=== PATIENT | female | born 1990 ===

== ENCOUNTER 2017-01-19 05:12 | Inpatient (IN) | payer OTHER, BC ==
[2017-01-19] MEDS ORDERED: Sodium Chloride 0.9% 1,000 ML IV STA ×3 (06:13→08:28)
--- NOTE | 2017-01-19 06:15 | ED PDOC ---
HPI: Abdomen Time Seen by Provider: 01/19/17 05:55 Chief Complaint (Nursing): Abdominal Pain History Per: Patient History/Exam Limitations: no limitations Onset/Duration Of Symptoms: Days, Intermittent Episodes Outside of [place] travel?: No Current Symptoms Are (Timing): Still Present Severity: Moderate Location Of Pain/Discomfort: RUQ Quality Of Discomfort: "Pain" Associated Symptoms: Nausea, Vomiting. denies: Fever Exacerbating Factors: None Alleviating Factors: None Additional History Per: Patient Additional Complaint(s): 26 y/o female complaining of RUQ intermittent abdominal pain over the last few weeks associated with nausea and vomiting. Pain is nonradiating and not associated with fever. She was seen at [facility] on 01/04/17 for the same, CT was performed, and she was discharged with a diagnosis of gastritis. Past Medical History Vital Signs: Last Vital Signs Temp 99.0 F 01/19/17 05:33 Pulse 81 01/19/17 05:33 Resp 16 01/19/17 05:33 BP 113/65 01/19/17 05:33 Pulse Ox 100 01/19/17 06:15 - Medical History PMH: No Chronic Diseases - Surgical History Surgical History: No Surg Hx - Family History Family History: States: Unknown Family Hx - Immunization History Hx Tetanus Toxoid Vaccination: No Hx Influenza Vaccination: No Hx Pneumococcal Vaccination: No - Home Medications Home Medications: Ambulatory Orders Medication Instructions Recorded Dicyclomine [Dicyclomine HCl] 10 mg PO QID #20 cap 01/05/17 Famotidine [Pepcid] 20 mg PO BID #30 tab 01/05/17 - Allergies Allergies/Adverse Reactions: Allergies Allergy/AdvReac Type Severity Reaction Status Date / Time amphetamine [From Adderall] AdvReac Verified 01/04/17 19:52 dextroamphetamine AdvReac Verified 01/04/17 19:52 [From Adderall] Review of Systems ROS Statement: Except As Marked, All Systems Reviewed And Found Negative Gastrointestinal: Positive for: Nausea, Vomiting, Abdominal Pain Physical Exam - Reviewed Nursing Documentation Reviewed: Yes Vital Signs Reviewed: Yes - Physical Exam Appears: Positive for: Well, Non-toxic, Uncomfortable, In Acute Distress Head Exam: Positive for: ATRAUMATIC, NORMAL INSPECTION, NORMOCEPHALIC Skin: Positive for: Normal Color, Warm, DRY Eye Exam: Positive for: EOMI, Normal appearance, PERRL ENT: Positive for: Normal ENT Inspection Neck: Positive for: Normal, Painless ROM Cardiovascular/Chest: Positive for: Regular Rate, Rhythm Respiratory: Positive for: CNT, Normal Breath Sounds Gastrointestinal/Abdominal: Positive for: Normal Exam, Bowel Sounds, Soft, Tenderness (RUQ) Back: Positive for: Normal Inspection Extremity: Positive for: Normal ROM Neurologic/Psych: Positive for: Alert, Oriented - ECG O2 Sat by Pulse Oximetry: 100 Medical Decision Making Medical Decision Making: Plan: - US abdomen - Morphine - IVF - Labs Review of records shows CT Abdomen: 1. 2.6 CM tubular/cystic change at the right adnexa. Differential diagnostic considerations include but are not limited to complex cyst or multilocuted cyctic lesion, hydrosalpinx. If indicated this can be further evaluated with pelvic sonogram. 2. Question mild wall thickening at the splenic fixture of the color, verses underdistention. these correlate clincally and if indicated further evaluation can be obtained. 3. Additional incidental and/or chronic findings as described. 07:00: EMILEE pending US, labs, and reeval. Scribe Attestation: Documented by Ariadna Bell, acting as a scribe for Rosalinda Syed MD. Provider Scribe Attestation: All medical record entries made by the Scribe were at my direction and personally dictated by me. I have reviewed the chart and agree that the record accurately reflects my personal performance of the history, physical exam, medical decision making, and the department course for this patient. I have also personally directed, reviewed, and agree with the discharge instructions and disposition. Disposition - Disposition Referrals: David Dyer MD [Primary Care Provider] - Forms: [employer] ([place]ian)
[2017-01-19 06:36] LABS: RBC URINE 5 /hpf (0-3); URINE BILIRUBIN NEGATIVE (NEGATIVE); URINE BLOOD NEGATIVE (NEGATIVE); URINE COLOR YELLOW (YELLOW); URINE GLUCOSE (UA) NEG (Normal); URINE KETONE NEGATIVE (NEGATIVE); URINE LEUKOCYTE ESTERASE NEG Leu/uL (Negative); URINE PROTEIN NEGATIVE (NEGATIVE); URINE UROBILINOGEN 0.2-1.0 mg/dL (0.2-1.0); WBC URINE 15 /hpf (0-5)
[2017-01-19 06:40] LABS: BASO # 0.1 K/uL (0.0-0.2); BASO % 0.6 % (0.0-2.0); EOS # 0.1 K/uL (0.0-0.7); EOS % 0.8 % (0.0-4.0); HEMATOCRIT 37.6 % (34.0-47.0); LYMPH # 1.7 K/uL (1.0-4.3); LYMPH % 17.8 % (20.0-40.0); MEAN CELL VOLUME 84.4 fl (81.0-99.0); MEAN CORPUSCULAR HEMOGLOBIN 27.7 pg (27.0-31.0); MEAN CORPUSCULAR HGB CONC 32.9 g/dL (33.0-37.0); MEAN PLATELET VOLUME 8.2 fl (7.2-11.7); MONO # 0.7 K/uL (0.0-0.8); MONO % 7.2 % (0.0-10.0); NEUT # 7.1 K/uL (1.8-7.0); NEUT % 73.6 % (50.0-75.0); NRBC % 0.1 % (0.0-0.0); RED CELL DISTRIBUTION WIDTH 13.3 % (11.5-14.5); WHITE BLOOD COUNT 9.6 K/uL (4.8-10.8)
[2017-01-19 06:44] LABS: ALB/GLOB RATIO 1.4 (1.0-2.1); ALKALINE PHOSPHATASE 63 U/L (38-126); ALT/SGPT 26 U/L (9-52); AST/SGOT 21 U/L (14-36); BILIRUBIN,TOTAL 0.3 mg/dl (0.2-1.3); BLOOD UREA NITROGEN 14 mg/dl (7-17); CALCIUM 9.3 mg/dL (8.4-10.2); CARBON DIOXIDE 21 mmol/L (22-30); CHLORIDE 107 mmol/L (98-107); GFR AFRICAN-AMERICAN > 60; GLUCOSE,RANDOM 115 mg/dL (65-105); LIPASE 92 U/L (23-300); POTASSIUM 3.6 MMOL/L (3.6-5.0); SODIUM 143 mmol/l (132-148); TOTAL PROTEIN 7.3 G/DL (6.3-8.2)
--- NOTE | 2017-01-19 07:16 | ED PDOC ---
- Laboratory Results Result Diagrams: 01/19/17 06:28 01/19/17 06:28 - ECG O2 Sat by Pulse Oximetry: 100 (RA) Pulse Ox Interpretation: Normal - Physician Consult Information Time Consulting Physican Contacted: 10:21 Physician Contacted: Ry Richards Outcome Of Conversation: NPO, Unasyn 1.5 g q6h, residential builder, OR tomorrow. Medical Decision Making Medical Decision Makin:00 Patient was signed out to me by Rosalinda Syed MD pending US, labs, reevaluation and final disposition. Time: US ABDOMEN FINDINGS: LIVER: Measures 15.9 cm in length. Normal echogenicity of the liver parenchyma. No mass. No intrahepatic bile duct dilatation. GALLBLADDER: The gallbladder appears distended with numerous calculi layering the dependent portion. No pericholecystic fluid collection identified however the gallbladder wall appears mildly thickened to 3.8 mm. Clinically correlate for cholecystitis. There is a positive sonographic Moise sign as well. COMMON BILE DUCT: Measures 4.1 mm. No stones. No dilatation. PANCREAS: Unremarkable as visualized. No mass. No ductal dilatation. RIGHT KIDNEY: Not interrogated referring physician's request. AORTA: Not interrogated referring physician's request. IVC: Not interrogated referring physician's request. OTHER FINDINGS: None . IMPRESSION: Ultrasound of the biliary tree was performed as discussed above identifying potential cholecystitis at the gallbladder including cholelithiasis but a normal common bile duct caliber as imaged. Further clinical correlation is advised. Please see details above. Scribe Attestation: Documented by Ade Andujar, acting as a scribe for Ade Dowling MD. Provider Scribe Attestation: All medical record entries made by the Scribe were at my direction and personally dictated by me. I have reviewed the chart and agree that the record accurately reflects my personal performance of the history, physical exam, medical decision making, and the department course for this patient. I have also personally directed, reviewed, and agree with the discharge instructions and disposition. Disposition - Disposition Referrals: David Dyer MD [Primary Care Provider] - Forms: [employer] ([place])
--- NOTE | 2017-01-19 09:34 | US ---
HISTORY: assess gallbladder ro cholecystitis COMPARISON: None. TECHNIQUE: Sonographic evaluation of the biliary tree. FINDINGS: LIVER: Measures 15.9 cm in length. Normal echogenicity of the liver parenchyma. No mass. No intrahepatic bile duct dilatation. GALLBLADDER: The gallbladder appears distended with numerous calculi layering the dependent portion. No pericholecystic fluid collection identified however the gallbladder wall appears mildly thickened to 3.8 mm. Clinically correlate for cholecystitis. There is a positive sonographic Moise sign as well. COMMON BILE DUCT: Measures 4.1 mm. No stones. No dilatation. PANCREAS: Unremarkable as visualized. No mass. No ductal dilatation. RIGHT KIDNEY: Not interrogated referring physician's request. AORTA: Not interrogated referring physician's request. IVC: Not interrogated referring physician's request. OTHER FINDINGS: None . IMPRESSION: Ultrasound of the biliary tree was performed as discussed above identifying potential cholecystitis at the gallbladder including cholelithiasis but a normal common bile duct caliber as imaged. Further clinical correlation is advised. Please see details above.
[2017-01-19] MEDS ORDERED: Fluconazole 150 MG TAB PO STA (09:56)
[2017-01-19] MEDS ORDERED: Ampicillin/Sulbactam 1.5 GM in Sodium Chloride 0.9% 100 ML IVPB STA (10:21)
--- NOTE | 2017-01-19 11:39 | CP.PCM.CON ---
<Karen Mcclain - Last Filed: 01/19/17 11:34> History of Present Illness - History of Present Illness History of Present Illness: Surgery: Dr. Richards Reason for consult: cholecystitis CC: RUQ abdominal pain, nausea/vomiting HPI: Patient is a 26 y/o female who presents complaining of RUQ abdominal pain that started acutely last night. She describes the pain as sharp which radiates to the right flank. She tried taking tums and sips of milk without relief. She reports having similar episodes before in which she was seen at outside hospital , most recently 3 weeks ago. She states she was given antacid and pain medication as well as antibiotic and instructed to f/u as outpatient. She states the pain had resolved and was not experiencing any issues until last night. She reports eating lots of fatty food yesterday which she believes elicited the pain in her abdomen. She reports associated nausea and nonbloody nonbilious vomiting. She denies diarrhea/constipation fever or chills. Last tolerated meal was last night prior to pain episode. Last menstrual period was last week and reported as normal. PMH: ADHD PSH: wisdom teeth extraction, right foot bunion surgery Social: denies tobacco or drug abuse Review of Systems - Constitutional Constitutional: Anorexia. absent: Chills, Fever - EENT Eyes: absent: Blurred Vision, Change in Vision Nose/Mouth/Throat: absent: Nasal Congestion, Sore Throat - Cardiovascular Cardiovascular: absent: Chest Pain, Dyspnea, Edema - Respiratory Respiratory: absent: Cough, Wheezing - Gastrointestinal Gastrointestinal: Abdominal Pain, Nausea, Vomiting. absent: Constipation, Diarrhea - Genitourinary Genitourinary: absent: Hematuria - Reproductive: Female Reproductive:Female: Normal Menses - Musculoskeletal Musculoskeletal: absent: Neck Pain, Numbness - Integumentary Integumentary: absent: Sores, Jaundice - Neurological Neurological: absent: Dizziness, Numbness - Psychiatric Psychiatric: absent: Anxiety, Depression - Endocrine Endocrine: absent: Polydipsia, Polyphagia - Hematologic/Lymphatic Hematologic: absent: Easy Bleeding, Easy Bruising Past Patient History - Infectious Disease Hx of Infectious Diseases: None - Past Social History Smoking Status: Never Smoked - GASTROINTESTINAL Hx Gastritis: Yes - PSYCHIATRIC Hx Substance Use: No - SURGICAL HISTORY Other/Comment: oral sx - ANESTHESIA Hx Anesthesia: Yes Hx Anesthesia Reactions: No Hx Malignant Hyperthermia: No Meds Allergies/Adverse Reactions: Allergies Allergy/AdvReac Type Severity Reaction Status Date / Time amphetamine [From Adderall] AdvReac Verified 01/04/17 19:52 dextroamphetamine AdvReac Verified 01/04/17 19:52 [From Adderall] - Medications Medications: Current Medications Aripiprazole (Abilify) 10 mg PO DAILY REPLACED BY [facility] Oxcarbazepine (Trileptal) 300 mg PO Q8 REPLACED BY [facility] Physical Exam - Constitutional Appears: Non-toxic, No Acute Distress - Head Exam Head Exam: ATRAUMATIC, NORMOCEPHALIC - Eye Exam Eye Exam: EOMI, Normal appearance - ENT Exam ENT Exam: Mucous Membranes Moist - Respiratory Exam Respiratory Exam: NORMAL BREATHING PATTERN. absent: Respiratory Distress - Cardiovascular Exam Cardiovascular Exam: REGULAR RHYTHM. absent: Tachycardia - GI/Abdominal Exam GI & Abdominal Exam: Soft, Tenderness (+rayo's sign. RUQ). absent: Distended , Guarding, Rebound, Rigid - Extremities Exam Extremities exam: Positive for: normal inspection. Negative for: calf tenderness - Back Exam Back exam: absent: CVA tenderness (L), CVA tenderness (R) - Neurological Exam Neurological exam: Alert, Oriented x3 - Psychiatric Exam Psychiatric exam: Normal Affect, Normal Mood - Skin Skin Exam: Dry, Normal Color, Warm Results - Vital Signs Recent Vital Signs: Last Vital Signs Temp 99.0 F 01/19/17 05:33 Pulse 81 01/19/17 05:33 Resp 16 01/19/17 05:33 BP 113/65 01/19/17 05:33 Pulse Ox 100 01/19/17 10:24 - Labs Result Diagrams: 01/19/17 06:28 01/19/17 06:28 Labs: Laboratory Results - last 24 hr 01/19/17 01/19/17 01/19/17 06:28 06:28 06:28 WBC 9.6 RBC 4.46 Hgb 12.4 Hct 37.6 MCV 84.4 MCH 27.7 MCHC 32.9 L RDW 13.3 Plt Count 334 MPV 8.2 Neut % (Auto) 73.6 Lymph % (Auto) 17.8 L Story % (Auto) 7.2 Eos % (Auto) 0.8 Baso % (Auto) 0.6 Neut # 7.1 H Lymph # 1.7 Story # 0.7 Eos # 0.1 Baso # 0.1 Sodium 143 Potassium 3.6 Chloride 107 Carbon Dioxide 21 L Anion Gap 19 BUN 14 Creatinine 0.6 L Est GFR ( Amer) > 60 Est GFR (Non-Af Amer) > 60 Random Glucose 115 H Calcium 9.3 Total Bilirubin 0.3 AST 21 ALT 26 Alkaline Phosphatase 63 Total Protein 7.3 Albumin 4.2 Globulin 3.0 Albumin/Globulin Ratio 1.4 Lipase 92 Urine Color Yellow Urine Clarity Turbid Urine pH 8.0 Ur Specific [place] 1.018 Urine Protein Negative Urine Glucose (UA) Neg Urine Ketones Negative Urine Blood Negative Urine Nitrate Negative Urine Bilirubin Negative Urine Urobilinogen 0.2-1.0 Ur Leukocyte Esterase Neg Urine RBC (Auto) 5 H Urine Microscopic WBC 15 H Ur Squamous Epith Cells 2 Urine Yeast (Budding) Many H Assessment & Plan - Assessment and Plan (Free Text) Assessment: 26 y/o female w/ acute cholecystitis Plan: -NPO -IVF -IV abx -for OR today -am labs -pain control -d/w Dr. Richards [facility] PGY3 <Ry Richards - Last Filed: 01/19/17 13:49> History of Present Illness - History of Present Illness History of Present Illness: Patient was seen and examined at the bedside. Agree with resident's note above. Meds - Medications Medications: Current Medications Aripiprazole (Abilify) 10 mg PO DAILY [facility] Famotidine (Pepcid) 40 mg IVP DAILY [facility] Famotidine (Pepcid) 20 mg IVP Q12 [facility] Lactated Ringer's (Lactated Ringer's) 1,000 mls @ 125 mls/hr IV .Q8H ROSE Piperacillin Sod/Tazobactam (Sod 3.375 gm/ Sodium Chloride) 100 mls @ 100 mls/ hr IVPB Q6 ROSE Sodium Chloride (Sodium Chloride 0.9%) 1,000 mls @ 125 mls/hr IV .Q8H ROSE Stop: 01/20/17 11:51 Morphine Sulfate (Morphine) 4 mg IVP Q4 PRN PRN Reason: Pain, severe (8-10) Morphine Sulfate (Morphine) 2 mg IVP Q4 PRN PRN Reason: Pain, moderate (4-7) Ondansetron HCl (Zofran Inj) 4 mg IVP Q4 PRN PRN Reason: Nausea/Vomiting Oxcarbazepine (Trileptal) 300 mg PO Q8 ROSE Results - Vital Signs Recent Vital Signs: Last Vital Signs Temp 98.2 F 01/19/17 12:00 Pulse 72 01/19/17 12:00 Resp 20 01/19/17 12:00 BP 98/61 L 01/19/17 12:00 Pulse Ox 99 01/19/17 12:00 - Labs Result Diagrams: 01/19/17 06:28 01/19/17 06:28 Labs: Laboratory Results - last 24 hr 01/19/17 01/19/17 01/19/17 06:28 06:28 06:28 WBC 9.6 RBC 4.46 Hgb 12.4 Hct 37.6 MCV 84.4 MCH 27.7 MCHC 32.9 L RDW 13.3 Plt Count 334 MPV 8.2 Neut % (Auto) 73.6 Lymph % (Auto) 17.8 L Story % (Auto) 7.2 Eos % (Auto) 0.8 Baso % (Auto) 0.6 Neut # 7.1 H Lymph # 1.7 Story # 0.7 Eos # 0.1 Baso # 0.1 Sodium 143 Potassium 3.6 Chloride 107 Carbon Dioxide 21 L Anion Gap 19 BUN 14 Creatinine 0.6 L Est GFR ( Amer) > 60 Est GFR (Non-Af Amer) > 60 Random Glucose 115 H Calcium 9.3 Total Bilirubin 0.3 AST 21 ALT 26 Alkaline Phosphatase 63 Total Protein 7.3 Albumin 4.2 Globulin 3.0 Albumin/Globulin Ratio 1.4 Lipase 92 Urine Color Yellow Urine Clarity Turbid Urine pH 8.0 Ur Specific [place] 1.018 Urine Protein Negative Urine Glucose (UA) Neg Urine Ketones Negative Urine Blood Negative Urine Nitrate Negative Urine Bilirubin Negative Urine Urobilinogen 0.2-1.0 Ur Leukocyte Esterase Neg Urine RBC (Auto) 5 H Urine Microscopic WBC 15 H Ur Squamous Epith Cells 2 Urine Yeast (Budding) Many H
[2017-01-19] MEDS ORDERED: Lactated Ringer's 1,000 ML IV SCH ×2 (11:45→15:15)
[2017-01-19] MEDS ORDERED: Sodium Chloride 0.9% 1,000 ML IV SCH (12:00)
[2017-01-19] MEDS ORDERED: Propofol 10 mg/ml Inj (20 ML) ONE (13:04)
[2017-01-19] MEDS ORDERED: Rocuronium 10 mg/ml (5 ml) ONE (13:04)
[2017-01-19] MEDS ORDERED: ePHEDrine 50 mg/ml Inj ONE (13:04)
[2017-01-19] MEDS ORDERED: Succinylcholine 200 mg/10 ml Inj IV ONE (13:04)
[2017-01-19] MEDS ORDERED: Phenylephrine 10 mg/ml Inj ONE (13:23)
[2017-01-19] MEDS ORDERED: Lidocaine 4% (Laryng-O-Jet) Kit MM ONE (13:25)
[2017-01-19] MEDS ORDERED: Midazolam 2 MG/2 ML VIAL ONE (13:25)
[2017-01-19] MEDS ORDERED: Sodium Chloride 0.9% 1,000 ML IV ONE ×2 (13:40)
[2017-01-19] MEDS ORDERED: Lactated Ringer's 500 ML IV ONE ×2 (14:00→15:00)
[2017-01-19] MEDS ORDERED: Dexamethasone 4 mg/1 ml ONE (14:13)
[2017-01-19] MEDS ORDERED: Neostigmine Methylsulfate 3mg/3ml Syringe IV ONE (14:33)
[2017-01-19] MEDS ORDERED: Bupivacaine 0.5% Inj(30mL) IJ ONE (15:00)
[2017-01-19] MEDS ORDERED: HYDROmorphone 0.5 mg/0.5 ml ISec IVP PRN (15:15)
[2017-01-19] MEDS ORDERED: Oxycodone/Acetaminophen 5/325 mg Tab PO PRN (15:15)
--- NOTE | 2017-01-19 15:19 | PCM.SURG1 ---
Surgeon's Initial Post Op Note - Surgeon's Notes Surgeon: Dr. Richards Dive Superintendent: Dr. Dave West; Dr. Mcclain, PGY3; Nina Aparicio, PGY2 Pre-Operative Diagnosis: Acute Cholecystitis, cholelithiasis Operative Findings: See full operative report Post-Operative Diagnosis: acute cholecystitis, cholelithiasis Operation Performed: Laparoscopic cholecystectomy Specimen/Specimens Removed: gallbladder Estimated Blood Loss: EBL {In ML}: 5 Drains Used: No Drains Date of Surgery/Procedure: 01/19/17 Time of Surgery/Procedure: 13:30
[2017-01-19] MEDS ORDERED: Bupivacaine 0.5% Inj(30mL) ONE (15:47)
[2017-01-19] MEDS ORDERED: Piperacillin/Tazobact 3.375 GM in Sodium Chloride 0.9% 100 ML IVPB SCH (16:00)
[2017-01-19] MEDS: Ampicillin/Sulbactam 1.5 GM in Sodium Chloride 0.9% 100 ML IVPB SCH ×2 (17:27→21:38)
--- NOTE | 2017-01-20 01:29 | OP ---
DATE OF PROCEDURE: 01/19/2017. PREOPERATIVE DIAGNOSIS: Acute cholecystitis. POSTOPERATIVE DIAGNOSIS: Acute cholecystitis. PROCEDURE: Laparoscopic cholecystectomy. SURGEON: Dr. Richards. STRAPPING MACHINE OPERATOR: Dr. West. SECOND STRAPPING MACHINE OPERATOR: Sarahi HITCHCOCK STRAPPING MACHINE OPERATOR: Markus TYPE OF ANESTHESIA: General with endotracheal intubation. IV FLUID: Crystalloids. ESTIMATED BLOOD LOSS: 5 mL. INTRAOPERATIVE FINDINGS: Acute cholecystitis and cholelithiasis. SPECIMEN: Gallbladder with stones. BRIEF HISTORY: Mrs. Rowe is a very pleasant 26-year-old female who came to the hospital complaining of right upper quadrant abdominal pain for one day duration and upon further investigation, the patient was found to have gallstones in the gallbladder on ultrasound; however, was very tender in the right upper quadrant, so the patient was taken to the operating room for above stated procedure. Prior to the procedure, all the risks and benefits of the surgery were explained to the patient and with the patient having a full understanding of all the risks and benefits involved, informed consent was obtained, and the patient was taken to the operating room for above stated procedure. DESCRIPTION OF PROCEDURE: The patient was brought into the operating room and placed supine on operating room table. Bilateral Flowtron boots were applied to the patient's lower extremities. After successful induction of anesthesia and successful endotracheal intubation by the anesthesia team, the patient's abdomen was prepped with ChloraPrep stick and draped in the standard surgical fashion. Prior to the beginning of the procedure, a timeout was called in the room and everyone in the room were in agreement. Using an 11-blade scalpel knife, approximately 5 mm incision was made on the right side of the patient's abdomen and subsequent to that using 5 mm Optiview Visiport, the patient's abdomen was entered under direct visualization and pneumoperitoneum was achieved with good opening pressures. Once this was accomplished, 5 mm 0 degree scope was introduced into the patient's abdomen and abdomen was inspected. Then, attention was turned to the umbilical area using the 11-blade scalpel knife. Approximately 1 cm incision was made in the umbilicus in the longitudinal fashion and subsequent to that, 11 mm trocar was introduced into the patient's abdomen. At that point in time, attention was turned to the subxiphoid area. Using the 11 blade scalpel knife, 5 mm incision was made in a transverse fashion and subsequent to that, another 5 mm trocar was introduced into the patient's abdomen. At that point in time, attention was turned back to the right side of the patient's abdomen. Using the 11 blade scalpel knife, approximately 5 mm incision was made in the transverse fashion and subsequent to that another 5 mm trocar was introduced into the patient's abdomen. At that point in time, when we examined the gallbladder, it appeared to be inflamed and distended. So, at that point in time, decision was made to decompress the gallbladder with Veress needle. Once the Veress needle was inserted into gallbladder, the gallbladder appeared to have hydrops and fluid was suctioned out. At that point in time, gallbladder was grasped by the fundus and infundibulum and using [place] dissector, cystic duct and cystic artery were dissected out and a critical view of safety was achieved. At that point in time, the cystic duct was clipped with two clips proximal, one distal and transected with laparoscopic scissors. Same thing was done for the cystic artery. It was clipped with two clips proximal, one distal and transected with laparoscopic scissors. Upon further dissection, we encountered posterior branch of the cystic artery that was dissected out with [place] dissector and clipped with two clips proximal one distal and transected with laparoscopic scissors. At that point in time, gallbladder was dissected off the gallbladder fossa using hook electrical cautery and once the gallbladder was completely freed up from the gallbladder fossa, Endo Catch bag was introduced into the patient's abdomen; gallbladder was placed inside of the bag and the bag was closed. At that point in time, gallbladder fossa was inspected for hemostasis,hemostasis was confirmed. Patient's gallbladder fossa and abdominal cavity were copiously irrigated with sterile saline and fluid was suctioned out. At that point in time, 11 mm trocar together with the Endo Catch bag and the gallbladder were removed from the patient's abdomen and passed off to the [facility] as specimen. Fascial layer at the umbilical port site was closed with one interrupted 0-Vicryl suture and UR-6 needle. Subsequent to that, the patient's abdomen was fully desufflated; the rest of the trocars were removed from the patient's abdomen and the skin was closed with 4-0 Monocryl suture in a running subcuticular fashion. At the end of the procedure, incision sites were infiltrated with Marcaine anesthetic. The patient's abdomen was washed and dried and a Dermabond was applied to the incisions. The patient was successfully extubated by the anesthesia team, transferred to the stretcher and taken to the recovery room in a stable condition. At the end of the procedure, all instrument counts, needles and sponges were correct. Ry Richards MD
[2017-01-20] MEDS: Ampicillin/Sulbactam 1.5 GM in Sodium Chloride 0.9% 100 ML IVPB SCH ×2 (04:00→11:11)
--- NOTE | 2017-01-20 07:05 | CP.PCM.PN ---
<Karen Mcclain - Last Filed: 01/20/17 11:15> Subjective - Date & Time of Evaluation Date of Evaluation: 01/20/17 Time of Evaluation: 07:03 - Subjective Subjective: Surgery Patient feeling better today. She is asking for regular food. She denies n/v/f/ c. She reports soreness but states the pain she was having yesterday is gone. She tolerated broth and liquids last night. Objective - Vital Signs/Intake and Output Vital Signs (last 24 hours): Temp Pulse Resp BP Pulse Ox 98.7 F 71 20 94/62 L 97 01/20/17 00:34 01/20/17 00:34 01/20/17 00:34 01/20/17 00:34 01/20/17 00:34 - Medications Medications: Current Medications Aripiprazole (Abilify) 10 mg PO DAILY [facility] Last Admin: 01/19/17 17:28 Dose: 10 mg Famotidine (Pepcid) 40 mg IVP DAILY [facility] Lactated Ringer's (Lactated Ringer's) 1,000 mls @ 125 mls/hr IV .Q8H [facility] Ampicillin Sodium/Sulbactam (Sodium 1.5 gm/ Sodium Chloride) 100 mls @ 100 mls/ hr IVPB Q6 [facility] Last Admin: 01/20/17 04:00 Dose: 100 mls/hr Lactated Ringer's (Lactated Ringer's) 1,000 mls @ 100 mls/hr IV .Q10H [facility] Last Admin: 01/20/17 03:08 Dose: Not Given Morphine Sulfate (Morphine) 4 mg IVP Q4 PRN PRN Reason: Pain, severe (8-10) Ondansetron HCl (Zofran Inj) 4 mg IVP Q4 PRN PRN Reason: Nausea/Vomiting Oxcarbazepine (Trileptal) 300 mg PO Q8 [facility] Last Admin: 01/20/17 00:29 Dose: 300 mg Oxycodone/Acetaminophen (Percocet 5/325 Mg Tab) 1 tab PO Q4 PRN PRN Reason: Pain, moderate (4-7) Stop: 01/22/17 15:16 - Labs Labs: 01/19/17 06:28 01/19/17 06:28 - Constitutional Appears: Non-toxic, No Acute Distress - Head Exam Head Exam: ATRAUMATIC, NORMOCEPHALIC - Eye Exam Eye Exam: EOMI, Normal appearance - ENT Exam ENT Exam: Mucous Membranes Moist - Respiratory Exam Respiratory Exam: NORMAL BREATHING PATTERN. absent: Respiratory Distress - Cardiovascular Exam Cardiovascular Exam: REGULAR RHYTHM. absent: Tachycardia - GI/Abdominal Exam GI & Abdominal Exam: Soft, Tenderness (lisha-incisional ). absent: Guarding, Rigid, Rebound Additional comments: 4 laparoscopic incisions CDI w/ dermabond dressing in place - Extremities Exam Extremities Exam: Normal Inspection. absent: Calf Tenderness - Neurological Exam Neurological Exam: Alert, Awake - Psychiatric Exam Psychiatric exam: Normal Affect, Normal Mood - Skin Skin Exam: Dry, Normal Color, Warm Assessment and Plan - Assessment and Plan (Free Text) Assessment: 26 y/o F w/ acute cholecystitis s/p lap teddy POD1 Plan: -reg diet for breakfast -encourage ambulation -IS use -f/u am labs -cont Unasyn while in house -patient cleared for discharge -will d/w Dr. Richards [facility] PGY3 <Ry Richards - Last Filed: 01/20/17 11:21> Subjective - Date & Time of Evaluation Time of Evaluation: 10:10 - Subjective Subjective: Patient was seen and examined at the bedside. Agree with resident's note above. Objective - Vital Signs/Intake and Output Vital Signs (last 24 hours): Temp Pulse Resp BP Pulse Ox 98.1 F 102 H 18 102/71 100 01/20/17 07:27 01/20/17 07:27 01/20/17 07:27 01/20/17 07:27 01/20/17 07:27 - Medications Medications: Current Medications Aripiprazole (Abilify) 10 mg PO DAILY [facility] Last Admin: 01/20/17 11:10 Dose: 10 mg Famotidine (Pepcid) 40 mg IVP DAILY [facility] Last Admin: 01/20/17 11:13 Dose: 40 mg Lactated Ringer's (Lactated Ringer's) 1,000 mls @ 125 mls/hr IV .Q8H [facility] Ampicillin Sodium/Sulbactam (Sodium 1.5 gm/ Sodium Chloride) 100 mls @ 100 mls/ hr IVPB Q6 [facility] Last Admin: 01/20/17 11:11 Dose: 100 mls/hr Lactated Ringer's (Lactated Ringer's) 1,000 mls @ 100 mls/hr IV .Q10H [facility] Last Admin: 01/20/17 03:08 Dose: Not Given Morphine Sulfate (Morphine) 4 mg IVP Q4 PRN PRN Reason: Pain, severe (8-10) Ondansetron HCl (Zofran Inj) 4 mg IVP Q4 PRN PRN Reason: Nausea/Vomiting Oxcarbazepine (Trileptal) 300 mg PO Q8 [facility] Last Admin: 01/20/17 11:11 Dose: 300 mg Oxycodone/Acetaminophen (Percocet 5/325 Mg Tab) 1 tab PO Q4 PRN PRN Reason: Pain, moderate (4-7) Stop: 01/22/17 15:16 - Labs Labs: 01/20/17 06:50 01/20/17 06:50 Assessment and Plan - Assessment and Plan (Free Text) Plan: - Clear for discharge from the surgical stand point - Augmentin on discharge - Patient will follow up with me in the office in 10 days to 2 weeks for post- op visit
[2017-01-20 07:10] LABS: BASO % 0.1 % (0.0-2.0); EOS % 0.1 % (0.0-4.0); HEMATOCRIT 32.2 % (34.0-47.0); LYMPH # 1.4 K/uL (1.0-4.3); LYMPH % 15.1 % (20.0-40.0); MEAN CELL VOLUME 84.3 fl (81.0-99.0); MEAN CORPUSCULAR HEMOGLOBIN 28.5 pg (27.0-31.0); MEAN CORPUSCULAR HGB CONC 33.8 g/dL (33.0-37.0); MEAN PLATELET VOLUME 8.3 fl (7.2-11.7); MONO # 0.6 K/uL (0.0-0.8); MONO % 6.9 % (0.0-10.0); NEUT # 7.2 K/uL (1.8-7.0); NEUT % 77.8 % (50.0-75.0); RED CELL DISTRIBUTION WIDTH 13.2 % (11.5-14.5); WHITE BLOOD COUNT 9.2 K/uL (4.8-10.8)
[2017-01-20 07:18] LABS: ALB/GLOB RATIO 1.2 (1.0-2.1); ALKALINE PHOSPHATASE 52 U/L (38-126); ALT/SGPT 36 U/L (9-52); AST/SGOT 30 U/L (14-36); BILIRUBIN,TOTAL 0.2 mg/dl (0.2-1.3); BLOOD UREA NITROGEN 6 mg/dl (7-17); CALCIUM 8.5 mg/dL (8.4-10.2); CARBON DIOXIDE 21 mmol/L (22-30); CHLORIDE 110 mmol/L (98-107); GFR AFRICAN-AMERICAN > 60; GLUCOSE,RANDOM 101 mg/dL (65-105); POTASSIUM 3.8 MMOL/L (3.6-5.0); SODIUM 143 mmol/l (132-148); TOTAL PROTEIN 6.1 G/DL (6.3-8.2)
[2017-01-20 07:28] VITALS: BP 102/71; PULSE 102; RESP 18; TEMP 98.1; O2SAT 100
[2017-01-20] MEDS ORDERED: Enoxaparin 40 mg Syringe SC SCH (09:00)
--- NOTE | 2017-01-20 09:59 | CP.PCM.HP ---
History of Present Illness - History of Present Illness History of Present Illness: pt admitted for cholecystitis/cholelithiasis. had lap teddy yesterday w/o drain. on zosyn and pain is controlled. no f/c, n/v/d am labs pending abd tender/sore Present on Admission - Present on Admission Any Indicators Present on Admission: No Review of Systems - Gastrointestinal Gastrointestinal: As Per HPI, Abdominal Pain Past Patient History - Infectious Disease Hx of Infectious Diseases: None - Past Medical History & Family History Past Medical History?: Yes - Past Social History Smoking Status: Never Smoked - CARDIAC Hx Cardiac Disorders: No - PULMONARY Hx Respiratory Disorders: No - NEUROLOGICAL Hx Neurological Disorder: No - HEENT Hx HEENT Problems: No - RENAL Hx Chronic Kidney Disease: No - ENDOCRINE/METABOLIC Hx Endocrine Disorders: No - HEMATOLOGICAL/ONCOLOGICAL Hx Blood Disorders: No - INTEGUMENTARY Hx Dermatological Problems: No - MUSCULOSKELETAL/RHEUMATOLOGICAL Hx Musculoskeletal Disorders: No - GASTROINTESTINAL Hx Gastrointestinal Disorders: Yes Hx Gastritis: Yes - GENITOURINARY/GYNECOLOGICAL Hx Genitourinary Disorders: No - PSYCHIATRIC Hx Psychophysiologic Disorder: No Hx Substance Use: No - SURGICAL HISTORY Other/Comment: oral sx - ANESTHESIA Hx Anesthesia: Yes Hx Anesthesia Reactions: No Hx Malignant Hyperthermia: No Meds Home Medications: Home Medication List Medication Instructions Recorded Confirmed Type Amoxicillin/Clavulanate [Augmentin 1 tab PO Q12 #14 tab 01/20/17 Rx 875 MG-125 MG] oxyCODONE/Acetaminophen [Percocet 1 tab PO Q4 PRN #10 tab 01/20/17 Rx 5/325 mg Tab] Allergies/Adverse Reactions: Allergies Allergy/AdvReac Type Severity Reaction Status Date / Time amphetamine [From Adderall] AdvReac Verified 01/04/17 19:52 dextroamphetamine AdvReac Verified 01/04/17 19:52 [From Adderall] Physical Exam - Constitutional Appears: Well, Non-toxic, No Acute Distress - Head Exam Head Exam: ATRAUMATIC, NORMAL INSPECTION, NORMOCEPHALIC - Eye Exam Eye Exam: EOMI, Normal appearance, PERRL Pupil Exam: NORMAL ACCOMODATION, PERRL - ENT Exam ENT Exam: Mucous Membranes Moist, Normal Exam - Neck Exam Neck exam: Positive for: Normal Inspection - Respiratory Exam Respiratory Exam: Clear to Auscultation Bilateral, NORMAL BREATHING PATTERN - Cardiovascular Exam Cardiovascular Exam: REGULAR RHYTHM, RRR, +S1, +S2 - GI/Abdominal Exam GI & Abdominal Exam: Normal Bowel Sounds, Soft, Tenderness Additional comments: diffusely tender - Extremities Exam Extremities exam: Positive for: full ROM, normal capillary refill, normal inspection, pedal pulses present - Back Exam Back exam: NORMAL INSPECTION - Neurological Exam Neurological exam: Alert, CN II-XII Intact, Normal Gait, Oriented x3, Reflexes Normal - Psychiatric Exam Psychiatric exam: Normal Affect, Normal Mood - Skin Skin Exam: Dry, Intact, Normal Color, Warm Results - Vital Signs Recent Vital Signs: Last Vital Signs Temp 98.1 F 01/20/17 07:27 Pulse 102 H 01/20/17 07:27 Resp 18 01/20/17 07:27 BP 102/71 01/20/17 07:27 Pulse Ox 100 01/20/17 07:27 - Labs Result Diagrams: 01/20/17 06:50 01/20/17 06:50 Labs: Laboratory Results - last 24 hr 01/20/17 01/20/17 06:50 06:50 WBC 9.2 RBC 3.82 Hgb 10.9 L Hct 32.2 L MCV 84.3 MCH 28.5 MCHC 33.8 RDW 13.2 Plt Count 272 MPV 8.3 Neut % (Auto) 77.8 H Lymph % (Auto) 15.1 L [place] % (Auto) 6.9 Eos % (Auto) 0.1 Baso % (Auto) 0.1 Neut # 7.2 H Lymph # 1.4 [place] # 0.6 Eos # 0.0 Baso # 0.0 Sodium 143 Potassium 3.8 Chloride 110 H Carbon Dioxide 21 L Anion Gap 16 BUN 6 L Creatinine 0.5 L Est GFR ( Amer) > 60 Est GFR (Non-Af Amer) > 60 Random Glucose 101 Calcium 8.5 Total Bilirubin 0.2 AST 30 ALT 36 Alkaline Phosphatase 52 Total Protein 6.1 L Albumin 3.3 L D Globulin 2.8 Albumin/Globulin Ratio 1.2 Assessment & Plan (1) Cholecystitis with cholelithiasis Assessment and Plan: s/p lap teddy-pod 1 pain and nauseda control adv diet as arslan surgery ?? dc today oob Status: Acute (2) DVT prophylaxis Assessment and Plan: scd nad aehose ambulation Status: Acute Decision To Admit - Pt Status Changed To: Hospital Disposition Of: Inpatient - Admit Certification Admit to Inpatient:: After my assessment, the patient will require hospitalization for at least two midnights. This is because of the severity of symptoms shown, intensity of services needed, and/or the medical risk in this patient being treated as an outpatient. - . Bed Request Type: Med/Surg Admitting Physician: Mariano Hernandez
--- NOTE | 2017-01-20 20:01 | CP.PCM.DIS ---
Provider - Provider Date of Admission: 01/19/17 10:23 Attending physician: Mariano Hernandez MD Primary care physician: David Dyer Time Spent in preparation of Discharge (in minutes): 15 Diagnosis - Discharge Diagnosis (1) Cholecystitis with cholelithiasis Status: Acute (2) DVT prophylaxis Status: Acute Hospital Course - Lab Results Lab Results: Micro Results 01/19/17 12:06 Blood-Venous Blood Culture - Preliminary NO GROWTH AFTER 24 HOURS 01/19/17 11:31 Blood-Venous Blood Culture - Preliminary NO GROWTH AFTER 24 HOURS Most Recent Lab Values WBC 9.2 K/uL (4.8-10.8) 01/20/17 06:50 RBC 3.82 Mil/uL (3.80-5.20) 01/20/17 06:50 Hgb 10.9 g/dL (12.0-16.0) L 01/20/17 06:50 Hct 32.2 % (34.0-47.0) L 01/20/17 06:50 MCV 84.3 fl (81.0-99.0) 01/20/17 06:50 MCH 28.5 pg (27.0-31.0) 01/20/17 06:50 MCHC 33.8 g/dL (33.0-37.0) 01/20/17 06:50 RDW 13.2 % (11.5-14.5) 01/20/17 06:50 Plt Count 272 K/uL (130-400) 01/20/17 06:50 MPV 8.3 fl (7.2-11.7) 01/20/17 06:50 Neut % (Auto) 77.8 % (50.0-75.0) H 01/20/17 06:50 Lymph % (Auto) 15.1 % (20.0-40.0) L 01/20/17 06:50 [place] % (Auto) 6.9 % (0.0-10.0) 01/20/17 06:50 Eos % (Auto) 0.1 % (0.0-4.0) 01/20/17 06:50 Baso % (Auto) 0.1 % (0.0-2.0) 01/20/17 06:50 Neut # 7.2 K/uL (1.8-7.0) H 01/20/17 06:50 Lymph # 1.4 K/uL (1.0-4.3) 01/20/17 06:50 [place] # 0.6 K/uL (0.0-0.8) 01/20/17 06:50 Eos # 0.0 K/uL (0.0-0.7) 01/20/17 06:50 Baso # 0.0 K/uL (0.0-0.2) 01/20/17 06:50 Sodium 143 mmol/l (132-148) 01/20/17 06:50 Potassium 3.8 MMOL/L (3.6-5.0) 01/20/17 06:50 Chloride 110 mmol/L (98-107) H 01/20/17 06:50 Carbon Dioxide 21 mmol/L (22-30) L 01/20/17 06:50 Anion Gap 16 (10-20) 01/20/17 06:50 BUN 6 mg/dl (7-17) L 01/20/17 06:50 Creatinine 0.5 mg/dL (0.7-1.2) L 01/20/17 06:50 Est GFR ( Amer) > 60 01/20/17 06:50 Est GFR (Non-Af Amer) > 60 01/20/17 06:50 Random Glucose 101 mg/dL (65-105) 01/20/17 06:50 Calcium 8.5 mg/dL (8.4-10.2) 01/20/17 06:50 Total Bilirubin 0.2 mg/dl (0.2-1.3) 01/20/17 06:50 AST 30 U/L (14-36) 01/20/17 06:50 ALT 36 U/L (9-52) 01/20/17 06:50 Alkaline Phosphatase 52 U/L (38-126) 01/20/17 06:50 Total Protein 6.1 G/DL (6.3-8.2) L 01/20/17 06:50 Albumin 3.3 g/dL (3.5-5.0) L D 01/20/17 06:50 Globulin 2.8 gm/dL (2.2-3.9) 01/20/17 06:50 Albumin/Globulin Ratio 1.2 (1.0-2.1) 01/20/17 06:50 Lipase 92 U/L (23-300) 01/19/17 06:28 Urine Color Yellow (YELLOW) 01/19/17 06:28 Urine Clarity Turbid (Clear) 01/19/17 06:28 Urine pH 8.0 (5.0-8.0) 01/19/17 06:28 Ur Specific [place] 1.018 (1.003-1.030) 01/19/17 06:28 Urine Protein Negative mg/dL (NEGATIVE) 01/19/17 06:28 Urine Glucose (UA) Neg mg/dL (Normal) 01/19/17 06:28 Urine Ketones Negative mg/dL (NEGATIVE) 01/19/17 06:28 Urine Blood Negative (NEGATIVE) 01/19/17 06:28 Urine Nitrate Negative (NEGATIVE) 01/19/17 06:28 Urine Bilirubin Negative (NEGATIVE) 01/19/17 06:28 Urine Urobilinogen 0.2-1.0 mg/dL (0.2-1.0) 01/19/17 06:28 Ur Leukocyte Esterase Neg [place]/uL (Negative) 01/19/17 06:28 Urine RBC (Auto) 5 /hpf (0-3) H 01/19/17 06:28 Urine Microscopic WBC 15 /hpf (0-5) H 01/19/17 06:28 Ur Squamous Epith Cells 2 /hpf (0-5) 01/19/17 06:28 Urine Yeast (Budding) Many /hpf (NEGATIVE) H 01/19/17 06:28 Discharge Exam - Head Exam Head Exam: ATRAUMATIC, NORMOCEPHALIC Discharge Plan - Discharge Medications Prescriptions: Amoxicillin/Clavulanate [Augmentin 875 MG-125 MG] 1 tab PO Q12 #14 tab oxyCODONE/Acetaminophen [Percocet 5/325 mg Tab] 1 tab PO Q4 PRN #10 tab PRN Reason: Pain, Severe (8-10) - Follow Up Plan Condition: GOOD Disposition: HOME/ ROUTINE Instructions: Laparoscopic Cholecystectomy (DC) Additional Instructions: final dx-cholecystitis w/ cholelithiasis arslan po well. pain controlled follow up with PMD and surgeon in 1 wk Referrals: Ry Richards MD [Staff Provider] - Jimmy Cobb, DNP, [employer] [Advanced Practice Nurse] -
== END 2017-01-20 15:16 | disposition home or self-care (01) | DRG 419 ==
LOC: H.ER 05:12 → H.ERHOLD 10:23 → H.MEDSURG1 11:59
PROVIDERS: ADMIT Family Medicine; ATTEND Family Medicine
PROC: 0FT44ZZ Resection of Gallbladder, Percutaneous Endoscopic Approach (ICD-10-PCS; principal; 2017-01-19 13:30)
DX: K80.00 Calculus of gallbladder with acute cholecystitis without obstruction (principal); F90.9 Attention-deficit hyperactivity disorder, unspecified type; K29.70 Gastritis, unspecified, without bleeding; Z88.6 Allergy status to analgesic agent